=== PATIENT | female | born 2000 | race Caucasian/White ===

== ENCOUNTER 2019-06-01 22:53 | Emergency (ER) | payer BC, OTHER ==
[~2019-06-01] VITALS: Ht 170 cm; Wt 34.0 kg
[~2019-06-01 22:53] MED LIST: DICY20TA57 PO; DOXY100C2 PO; SULF1TAB23 PO
[2019-06-01] MEDS ORDERED: ONDANSETRON 4 MG/2 ML (SDV) Z0FRAN ONE (23:36)
[2019-06-01] MEDS ORDERED: LACTATED RINGERS 1,000 ML IV ONE (23:36)
[2019-06-01] MEDS ORDERED: HYOSCYAMINE 0.125 MG (LEVSIN) TAB ONE (23:36)
[2019-06-01] MEDS ORDERED: FAMOTIDINE 20MG/2ML IV (PEPCID) ONE (23:38)
[2019-06-02 00:25] LABS: ALANINE AMINOTRANSFERASE 14 U/L (0-55); ALBUMIN 4.3 GM/DL (3.2-4.5); ALKALINE PHOSPHATASE 100 U/L (40-136); BILIRUBIN,TOTAL 0.2 MG/DL (0.1-1.0); BUN/CREATININE RATIO 14; CALCIUM 9.2 MG/DL (8.5-10.1); CARBON DIOXIDE 23 MMOL/L (21-32); CHLORIDE 106 MMOL/L (98-107); CREATININE SERUM 0.78 MG/DL (0.60-1.30); GFR ESTIMATED > 60; GLUCOSE 115 MG/DL (70-105); MAGNESIUM 2.3 MG/DL (1.6-2.4); POTASSIUM 3.9 MMOL/L (3.6-5.0); SODIUM 139 MMOL/L (135-145); TOTAL PROTEIN 7.8 GM/DL (6.4-8.2)
[2019-06-02 00:26] LABS: BASOPHILS % (AUTO) 0 % (0-10); EOSINOPHILS # (AUTO) 0.6 10^3/uL (0.0-0.3); EOSINOPHILS % (AUTO) 4 % (0-10); HEMATOCRIT 42 % (35-52); LYMPHOCYTES # (AUTO) 2.4 X 10^3 (1.0-4.0); LYMPHOCYTES % (AUTO) 15 % (12-44); MEAN CORPUSCULAR HEMOGLOBIN 31 PG (25-34); MEAN CORPUSCULAR HGB CONC 33 G/DL (32-36); MEAN CORPUSCULAR VOLUME 92 FL (80-99); MEAN PLATELET VOLUME 9.6 FL (7.4-10.4); MONOCYTES # (AUTO) 1.1 X 10^3 (0.0-1.0); MONOCYTES % (AUTO) 7 % (0-12); NEUTROPHILS # (AUTO) 11.6 X 10^3 (1.8-7.8); NEUTROPHILS % (AUTO) 74 % (42-75); PLATELET COUNT 320 10^3/uL (130-400); WHITE BLOOD COUNT 15.7 10^3/uL (4.3-11.0)
[2019-06-02 00:27] LABS: BAND NEUTROPHILS 2 %; BASOPHILS % (MANUAL) 0 %; EOSINOPHILS % (MANUAL) 5 %; LYMPHOCYTES % (MANUAL) 14 %; MONOCYTES % (MANUAL) 5 %; NEUTROPHILS % (MANUAL) 71 %; RBC MORPH NORMAL; REACTIVE LYMPHOCYTES 3 %
[2019-06-02] MEDS ORDERED: KETOROLAC 30 MG/ML VIAL IVP ONE (00:30)
[2019-06-02 00:34] LABS: BILIRUBIN,URINE NEGATIVE (NEGATIVE); COLOR,URINE YELLOW; GLUCOSE, URINE (UA) NEGATIVE (NEGATIVE); KETONES,URINE NEGATIVE (NEGATIVE); LEUKOCYTE ESTERASE ,URINE NEGATIVE (NEGATIVE); NITRITE,URINE NEGATIVE (NEGATIVE); PH,URINE 7 (5-9); PROTEIN,URINE NEGATIVE (NEGATIVE); UROBILINOGEN,URINE NORMAL (NORMAL)
[2019-06-02 00:41] LABS: BACTERIA,URINE TRACE /HPF; CLARITY,URINE CLEAR; RBC,URINE 0-2 /HPF
--- NOTE | 2019-06-02 00:43 | ED Abdominal Pain ---
General Chief Complaint: Abdominal/GI Problems Stated Complaint: ABD PAIN Nursing Triage Note: Pt amb to room #5 with c/o medial lt abd discomfort that began approx 0300 while @ work this morning. Pt reports discomfort is accompanied by nausea, diarrhea, and chills. Pt states, "I have a history of gas problems." Pt reports @ 2130 on this day she took x1 gasX and "some" milk of magnesia. Source of Information: Patient Exam Limitations: No Limitations History of Present Illness Date Seen by Provider: Jun 01, 2019 Time Seen by Provider: 23:25 Initial Comments This 18-year-old young lady presents to the emergency room with an acute episode of abdominal pain. It seems to be migratory and involves both the epigastric region in the lower quadrants. Vital signs are stable and she is afebrile. Symptoms started around 03:00. Pain waxes and wanes. She has nausea without vomiting. She has had chills without fever. She has had multiple episodes of diarrhea. She took Gas-X and milk of magnesia hoping to "flush everything out". She also has a rash on the left arm that has been present for about 4 days now. It is pruritic and she does not know the cause. Dr. Brennan is her primary care provider. Patient notes that she has had other episodes similar to this but of lesser intensity in the past. She wonders if perhaps she has irritable bowel syndrome. Allergies and Home Medications Allergies Coded Allergies: No Known Drug Allergies (Unverified , 07/09/14) Home Medications Dicyclomine Hcl 20 Mg Tablet, 1 EACH PO QID PRN Prescribed by: NYASIA GIL on 07/09/14 2319 Doxycycline Hyclate 100 Mg Capsule, 1 CAP PO BID start the day after finishing bactrim for treatment of urinary tract infecit on Prescribed by: JEFFREY LEVI on 09/07/14 1425 Hyoscyamine Sulfate 0.125 Mg Tab.subl, 0.125 MG SL Q4H PRN for CRAMPS Prescribed by: DEBBIE KUMARI on 06/02/19 010 Ondansetron 4 Mg Tab.rapdis, 4 MG SL Q4H PRN for NAUSEA/VOMITING Prescribed by: DEBBIE KUMARI on 06/02/19108 Sulfamethoxazole/Trimethoprim 1 Tab Tablet, 1 TAB PO BID Prescribed by: JEFFREY LEVI on 09/07/14 1429 Patient Home Medication List Home Medication List Reviewed: Yes Review of Systems Review of Systems Constitutional: see HPI EENTM: No Symptoms Reported Respiratory: No Symptoms Reported Cardiovascular: No Symptoms Reported Gastrointestinal: See HPI Genitourinary: No Symptoms Reported Musculoskeletal: no symptoms reported Skin: no symptoms reported Psychiatric/Neurological: No Symptoms Reported Endocrine: No Symptoms Reported Hematologic/Lymphatic: No Symptoms Reported Past Eiboqfh-Zrxbgk-Celgfw Hx Past Med/Social Hx: Reviewed Nursing Past Med/Soc Hx Patient Social History Recent Foreign Travel: No Contact w/Someone Who Travel: No Recent Infectious Disease Expo: No Ebola Symptoms: Stomach Pain Immunizations Up To Date Tetanus Booster (TDap): Unknown PED Vaccines UTD: Yes Seasonal Allergies Seasonal Allergies: No Past Medical History Surgeries: No Respiratory: No Cardiac: No Neurological: No : No Reproductive Disorders: No Female Reproductive Disorders: Denies Sexually Transmitted Disease: No HIV/AIDS: No Gastrointestinal: No Musculoskeletal: No Endocrine: No HEENT: No Cancer: No Psychosocial: No Integumentary: No Blood Disorders: No Adverse Reaction/Blood Tranf: No Family Medical History No Family History of: AIDS Abdominal aortic aneurysm [place]'s disease Alcoholism Alzheimer's disease Aphasia Arthritis Asthma Cancer of mouth Cardiovascular disease Cataracts Colon cancer Completed stroke Congenital disease Congenital heart disease Coronary thrombosis Cystic fibrosis Deafness or hearing loss Dementia Diabetes mellitus Drug abuse Dysphasia Fibrocystic disease of breast Gastroenteritis Glaucoma Headache disorder Hypercholesterolemia Hypertension Infertility Kidney disease Myocardial infarction Neoplasm Not obtainable due to adoption Osteoporosis Parkinson's disease Prostate cancer Psychosocial problem Respiratory disorder Seizure disorder Severe allergy Thyroid disease Tuberculosis Physical Exam Vital Signs Vital Signs - First Documented 06/01/19 06/02/19 22:55 01:12 Temp 36.9 Pulse 64 Resp 16 B/P (MAP) 125/74 Pulse Ox 100 O2 Delivery Room Air Capillary Refill : Height/Weight/BMI Height: 5'9.00" Weight: 151lbs. 1.0oz. [id number]; 11.00 BMI Method:Estimated General Appearance: WD/WN, no apparent distress HEENT: PERRL/EOMI, normal ENT inspection Neck: normal inspection Respiratory: lungs clear, normal breath sounds, no respiratory distress, no accessory muscle use Cardiovascular: regular rate, rhythm, no edema, no murmur Gastrointestinal: normal bowel sounds, soft; No distended, No guarding; tenderness (mild in the epigastrium and lower quadrants) Extremities: normal inspection, no pedal edema Neurologic/Psychiatric: pediatric hospitalist II-XII nml as tested, no motor/sensory deficits, alert, normal mood/affect, oriented x 3 Skin: normal color, warm/dry Progress/Results/Core Measures Results/Orders Lab Results Laboratory Tests Test 06/01/19 23:03 06/02/19 00:12 Range/Units White Blood Count 15.7 H 4.3-11.0 10^3/uL Red Blood Count 4.59 4.35-5.85 10^6/uL Hemoglobin 14.0 11.5-16.0 G/DL Hematocrit 42 35-52 % Mean Corpuscular Volume 92 80-99 FL Mean Corpuscular Hemoglobin 31 25-34 PG Mean Corpuscular Hemoglobin Concent 33 32-36 G/DL Red Cell Distribution Width 13.0 10.0-14.5 % Platelet Count 320 130-400 10^3/uL Mean Platelet Volume 9.6 7.4-10.4 FL Neutrophils (%) (Auto) 74 42-75 % Lymphocytes (%) (Auto) 15 12-44 % Monocytes (%) (Auto) 7 0-12 % Eosinophils (%) (Auto) 4 0-10 % Basophils (%) (Auto) 0 0-10 % Neutrophils # (Auto) 11.6 H 1.8-7.8 X 10^3 Lymphocytes # (Auto) 2.4 1.0-4.0 X 10^3 Monocytes # (Auto) 1.1 H 0.0-1.0 X 10^3 Eosinophils # (Auto) 0.6 H 0.0-0.3 10^3/uL Basophils # (Auto) 0.0 0.0-0.1 10^3/uL Neutrophils % (Manual) 71 % Lymphocytes % (Manual) 14 % Monocytes % (Manual) 5 % Eosinophils % (Manual) 5 % Basophils % (Manual) 0 % Band Neutrophils 2 % Reactive Lymphocytes 3 % Blood Morphology Comment NORMAL Sodium Level 139 135-145 MMOL/L Potassium Level 3.9 3.6-5.0 MMOL/L Chloride Level 106 98-107 MMOL/L Carbon Dioxide Level 23 21-32 MMOL/L Anion Gap 10 5-14 MMOL/L Blood Urea Nitrogen 11 7-18 MG/DL Creatinine 0.78 0.60-1.30 MG/DL Estimat Glomerular Filtration Rate > 60 BUN/Creatinine Ratio 14 Glucose Level 115 H 70-105 MG/DL Calcium Level 9.2 8.5-10.1 MG/DL Corrected Calcium 9.0 8.5-10.1 MG/DL Magnesium Level 2.3 1.6-2.4 MG/DL Total Bilirubin 0.2 0.1-1.0 MG/DL Aspartate Amino Transf (AST/SGOT) 12 5-34 U/L Alanine Aminotransferase (ALT/SGPT) 14 0-55 U/L Alkaline Phosphatase 100 40-136 U/L Total Protein 7.8 6.4-8.2 GM/DL Albumin 4.3 3.2-4.5 GM/DL Lipase 17 8-78 U/L Serum Test, Qualitative NEGATIVE NEGATIVE Urine Color YELLOW Urine Clarity CLEAR Urine pH 7 5-9 Urine Specific [place] 1.010 L 1.016-1.022 Urine Protein NEGATIVE NEGATIVE Urine Glucose (UA) NEGATIVE NEGATIVE Urine Ketones NEGATIVE NEGATIVE Urine Nitrite NEGATIVE NEGATIVE Urine Bilirubin NEGATIVE NEGATIVE Urine Urobilinogen NORMAL NORMAL MG/DL Urine Leukocyte Esterase NEGATIVE NEGATIVE Urine RBC (Auto) 2+ H NEGATIVE Urine RBC 0-2 /HPF Urine WBC NONE /HPF Urine Squamous Epithelial Cells 2-5 /HPF Urine Crystals NONE /LPF Urine Bacteria TRACE /HPF Urine Casts NONE /LPF Urine Mucus NEGATIVE /LPF Urine Culture Indicated NO My Orders Orders - DEBBIE OLEA MD Cbc With Automated Diff (06/01/19 23:03) Hcg,Qualitative Serum (06/01/19 23:03) Comprehensive Metabolic Panel (06/01/19 23:03) Magnesium (06/01/19 23:03) Lipase (06/02/19 00:26) Ua Culture If Indicated (06/02/19 00:26) Ketorolac Injection (Toradol Injection) (06/02/19 00:30) Manual Differential (06/01/19 23:03) Hyoscyamine Sl Tablet (Levsin Sl Tablet) (06/02/19 01:00) Ondansetron Injection (Zofran Injectio (06/02/19 01:00) Famotidine Injection (Pepcid Injection) (06/02/19 01:00) Lactated Ringers (Lr 1000 Ml Iv Solution (06/02/19 01:00) Medications Given in ED Current Medications Medications Dose Ordered Sig/David Route Start Time Stop Time Status Last Admin Dose Admin Famotidine 20 mg ONCE ONCE IVP 06/02/19 01:00 06/02/19 01:01 DC 06/01/19 23:44 20 MG Hyoscyamine Sulfate 0.25 mg ONCE ONCE PO 06/02/19 01:00 06/02/19 01:01 DC 06/01/19 23:43 0.25 MG Ketorolac Tromethamine 15 mg ONCE ONCE IVP 06/02/19 00:30 06/02/19 00:31 DC 06/02/19 00:35 15 MG Ondansetron HCl 8 mg ONCE ONCE IVP 06/02/19 01:00 06/02/19 01:01 DC 06/01/19 23:43 8 MG Vital Signs/I&O 06/01/19 06/02/19 22:55 01:12 Temp 36.9 36.9 Pulse 64 91 Resp 16 16 B/P (MAP) 125/74 Pulse Ox 100 O2 Delivery Room Air Room Air Progress Progress Note #1: Time: 00:42 Progress Note Patient states her pain is actually worse after Levsin, Zofran, and Pepcid. We will try some Toradol. Labs showed leukocytosis but no other abnormalities. We will check a lipase as well. Patient's symptoms sound viral in nature. Her abdominal pain is migratory and accompanied by diarrhea. Symptoms may been made worse by the fact that she took milk of magnesia. Progress Note #2: Progress Note Toradol did significantly improve her pain. She was dismissed home. Departure Impression Primary Impression: Generalized abdominal cramping Additional Impressions: Generalized abdominal pain Diarrhea Qualified Codes: R19.7 - Diarrhea, unspecified Disposition: 01 HOME, SELF-CARE Condition: Improved Departure-Patient Inst. Decision time for Depature: 01:04 Referrals: TIFFANI BRENNAN MD (PCP/Family) Primary Care Physician Patient Instructions: Acute Abdomen (Belly Pain), Viral Gastroenteritis Add. Discharge Instructions: The exact cause of your abdominal pain and cramping is uncertain but may be related to viral gastroenteritis or irritable bowel syndrome. If you're still experiencing cramping and nausea later this morning, fill the prescriptions provided. Stick with a clear liquid diet through the night until your symptoms calmed down. Then gradually advance your diet with small quantities of bland food as tolerated. You may take Tylenol (acetaminophen) up to 1000 mg every 6 hours as needed. You may try taking ibuprofen 6-8 hours after your IV Toradol dose if you have pain not controlled by Tylenol. For upper abdominal pain, you may take an antacid such as omeprazole, Tums, Pepcid, etc. For cramping and diarrhea you may try the Levsin (hyoscyamine) as prescribed. For nausea try Zofran (ondansetron) dissolved under your tongue as prescribed. Return to the emergency room if you have worsening symptoms. Otherwise, please follow-up with your primary care provider in the near future. All discharge instructions reviewed with patient and/or family. Voiced understanding. Scripts Hyoscyamine Sulfate (Levsin-Sl) 0.125 Mg Tab.subl 0.125 MG SL Q4H PRN for CRAMPS, #10 TAB 0 Refills Prov: DEBBIE OLEA MD 06/02/19 Ondansetron (Ondansetron Odt) 4 Mg Tab.rapdis 4 MG SL Q4H PRN for NAUSEA/VOMITING, #10 TAB Prov: DEBBIE OLEA MD 06/02/19 Copy Copies To 1: TIFFANI BRENNAN MD, JOSHUA T MD Jun 02, 2019 00:43
[2019-06-02] MEDS ORDERED: LACTATED RINGERS 1,000 ML IV SCH (01:00)
[2019-06-02] MEDS ORDERED: ONDANSETRON 4 MG/2 ML (SDV) Z0FRAN IVP ONE (01:00)
[2019-06-02] MEDS ORDERED: HYOSCYAMINE 0.125 MG (LEVSIN) TAB PO ONE (01:00)
[2019-06-02] MEDS ORDERED: FAMOTIDINE 20MG/2ML IV (PEPCID) IVP ONE (01:00)
[2019-06-02] MEDS ORDERED: HYOS0.1283 SL (01:09)
[2019-06-02] MEDS ORDERED: ONDA4TAB11 SL (01:09)
== END 2019-06-02 01:14 | disposition home or self-care (01) ==
LOC: ER 22:53 → EDUNIT# 22:53 → ER 06-02 01:14
DX: R10.84 Generalized abdominal pain (principal); R19.7 Diarrhea, unspecified
CPT/HCPCS: 36415; 80053; 81000; 83690; 83735; 84703; 85007; 85027